=== PATIENT | female | born 1980 | race Caucasian/White ===

== ENCOUNTER → 2016-07-26 | Outpatient (CLI) | payer MEDICAID ==
[~2016-07-26] MED LIST: AYGESTIN5 MG PO; DELTASONE DPS10 MG PO; DUONEB DPS3 ML IH; ECHINACEA400 MG PO; FEOSOL-DPS325 MG PO; LAMOTRIGINE25 MG PO; LASIX DPS20 MG PO; MONTELUKAST SOD10 MG PO; MUCINEX600 MG PO; MUCUS AND COUG1 EACH PO; NIGHT TIME COL1 EACH PO; PANTOPRAZOLE SO20 MG PO; PROBIOTIC1 EAC1 PO; PROVENTIL HFA6.7 GM IH; PULMICORT FLE180 MCG IH; Q-TUSSIN100 MG/5 M PO; THERA1 EACH PO; TYLENOL DPS325 MG PO; VITAMIN C1000 MG PO; VITAMIN D31000 UNIT PO; ZINC CHELATED50 MG PO; ZITHROMAX250 MG PO; ZYRTEC DPS10 MG PO
== END | disposition home or self-care (01) ==
LOC: RAD.S 13:00
DX: N92.0 Excessive and frequent menstruation with regular cycle (principal)

== ENCOUNTER 2016-09-11 15:15 | Inpatient (IN) | payer MEDICAID ==
[~2016-09-11] VITALS: Ht 162.6 cm; Wt 177.2 kg
[2016-09-13] MEDS ORDERED: FEOSOL-DPS325 MG PO (15:53)
[2016-09-13] MEDS ORDERED: MONTELUKAST SOD10 MG PO (15:53)
[2016-09-13] MEDS ORDERED: ZYRTEC DPS10 MG PO (15:54)
[2016-09-13] MEDS ORDERED: PANTOPRAZOLE SO20 MG PO (15:54)
[2016-09-13] MEDS ORDERED: LAMOTRIGINE25 MG PO (15:54)
[2016-09-13] MEDS ORDERED: VITAMIN D31000 UNIT PO (15:55)
[2016-09-13] MEDS ORDERED: THERA1 EACH PO (15:55)
[2016-09-13] MEDS ORDERED: VITAMIN C1000 MG PO (15:55)
[2016-09-13] MEDS ORDERED: AYGESTIN5 MG PO (15:55)
[2016-09-13] MEDS ORDERED: LASIX DPS20 MG PO (15:55)
[2016-09-13] MEDS ORDERED: ECHINACEA400 MG PO (15:56)
[2016-09-13] MEDS ORDERED: MUCINEX600 MG PO (15:56)
[2016-09-13] MEDS ORDERED: PROBIOTIC1 EAC1 PO (15:56)
[2016-09-13] MEDS ORDERED: TYLENOL DPS325 MG PO (15:56)
[2016-09-13] MEDS ORDERED: NIGHT TIME COL1 EACH PO (15:57)
[2016-09-13] MEDS ORDERED: Q-TUSSIN100 MG/5 M PO (16:11)
[2016-09-13] MEDS ORDERED: MUCUS AND COUG1 EACH PO (16:12)
[2016-09-13] MEDS ORDERED: PULMICORT FLE180 MCG IH (16:13)
[2016-09-13] MEDS ORDERED: ZITHROMAX250 MG PO (16:13)
[2016-09-13] MEDS ORDERED: PROVENTIL HFA6.7 GM IH (16:13)
[2016-09-13] MEDS ORDERED: DUONEB DPS3 ML IH (16:13)
[2016-09-13] MEDS ORDERED: ZINC CHELATED50 MG PO (16:13)
[2016-09-13] MEDS ORDERED: DELTASONE DPS10 MG PO (16:14)
--- NOTE | 2016-09-20 09:59 | DS ---
ADMIT: 09/11/2016 RM/LOC: 429 [facility] MR#: [id number] [address] [id number] AARON SANDOVAL [address] [facility] [address] [place] [id number] Discharge Summary SEX: F AGE: 36 : 1980 ADMISSION DATE: 09/11/2016 DISCHARGE DATE: 09/13/2016 DISCHARGE DIAGNOSES: 1. Hypoxic respiratory failure, resolved. 2. Fever, resolved. 3. Acute bronchitis. 4. Acute exacerbation of asthma. 5. Tobacco abuse. 6. Morbid obesity. 7. Diabetes mellitus type 2. 8. Seasonal allergies. 9. Chronic sinusitis. CONSULTATIONS: None. PROCEDURES: None. REASON FOR ADMISSION: A very pleasant, 36-year-old female. Tobacco abuse, asthma. Presents to [facility] emergency room on the day of admission with complaints of shortness of breath, cough, stuffiness. The patient was found to be hypoxemic and coughing and wheezing, and she was admitted for further evaluation and treatment. For complete details, please see H and P dictated on the day of admission. HOSPITAL COURSE: At the time of admission, patient was placed in a telemetry bed. She underwent monitoring with telemetry. Her chest x-ray showed no initial consolidation. She was started on IV steroids and antibiotics. Blood cultures had been obtained. Blood cultures grew out nothing. She initially required up to 6 L of oxygen that was slowly titrated down to room air. She was able to ambulate without oxygen. We tapered her steroids and antibiotics. We put her on oral steroids and antibiotics. Her wheezing improved with regular pulmonary toilet and nebulized treatments. Discussed tobacco cessation at length with the patient especially given her asthma and chronic sinus and allergy problems. As mentioned, she ate and ambulated without difficulty on room air and was thought to be ready for discharge home on 09/13. ADMIT: 09/11/2016 RM/LOC: 429 [facility] MR#: [id number] 26[address] [facility] [address] [place] [id number] LORIGRACIE JONESERIE Trev [address] [facility] [address] [place] [id number] Discharge Summary SEX: F AGE: 36 : 1980 DISCHARGE MEDICATIONS: Found on her discharge medication list. 1. She will finish a short course of prednisone burst and taper by mouth as well as some oral Zithromax. 2. She will continue with nebulized albuterol at home. 3. We did add Pulmicort to her regimen for her asthma. ACTIVITY: As tolerated. DIET: ADA as tolerated. We will see her back in the next 7-10 days. Adrian Kendall MD/ stephanie JOB #: [id number] CC: Adrian Kendall MD, Attending Physician Adrian Kendall MD, Family Physician
--- NOTE | 2016-10-11 07:52 | HP ---
ADMIT: 09/11/2016 RM/LOC: 429 [facility] MR#: [id number] 2620 [facility] [address] [place], [place] [address] AARON SANDOVAL [address] [facility] [address] [place] [address] History and Physical SEX: F AGE: 36 : 1980 DATE OF SERVICE: HISTORY OF PRESENT ILLNESS: Mrs. Sandoval is a very pleasant 36-year-old, patient of Dr. Adrian Kendall, who presented to [facility] with complaint of increased cough and shortness of breath. She has had some sinus drainage over the last week, that then changed into more severe symptoms over the last 24-48 hours. She has had cough that is nonproductive, increased shortness of breath, as well as fevers as high as 101. She has been doing nebulizers every 2 hours, taking Tylenol, as well as multiple other [id number] cough and cold medicines including NyQuil, Mucinex, DayQuil, and sinus pills. Nothing seems to help, she feels worse today than she has at all. Unfortunately, Mrs. Sandoval continues to smoke at least half a pack per day, although she says for the last few days, she has only had a few. She does not have oxygen at home but does wear a CPAP at night. She has also noted increased nausea, no vomiting, she has no appetite, has also had some diarrhea. She has been trying to drink some fluids, but has not been eating much. She has been drinking hot tea with honey at least three 32-ounce glasses per day. PAST MEDICAL HISTORY: 1. Morbid obesity. 2. ADHD. 3. Obstructive sleep apnea, wearing CPAP. 4. OCD. 5. Dyspepsia. 6. Spinal stenosis of the lumbar. 7. History of suicide attempt. 8. Hypertension. 9. Migraines. 10.GERD. 11.Type 2 diabetes. 12.Asthma. 13.Nicotine addiction. PAST SURGICAL HISTORY: 1. section. 2. Cholecystectomy. 3. Knee scope. 4. Sinus surgery. 5. Tendon release of her thumb. 6. Tonsillectomy. 7. Tubal ligation. SOCIAL HISTORY: 1. She is and disabled. 2. Smoking history; current half a pack per day smoker. 3. Alcohol use rare. FAMILY HISTORY: ADMIT: 09/11/2016 RM/LOC: 429 [facility] MR#: [id number] [address] [address] AARON SANDOVAL [address] [facility] [address] [place] [address] History and Physical SEX: F AGE: 36 : 1980 1. Bipolar. 2. Hypothyroidism. 3. Anemia. 4. Seizures. 5. Diabetes. 6. Fibromyalgia. 7. Hypoglycemia. MEDICATIONS: 1. Ventolin inhaler two puffs every 4-6 hours as needed for shortness of breath or wheezing. 2. Vitamin C 500 mg daily. 3. Pulmicort 100 mcg two puffs b.i.d. 4. Zyrtec 10 mg daily. 5. Vitamin D3 5000 units one time per day. 6. Iron sulfate 325 mg b.i.d. 7. Lasix 20 mg daily. 8. Guaifenesin 400 mg every 6 hours. 9. Probiotic. 10.Lamictal 25 mg one time per day. 11.Singulair 10 mg per day. 12.Multivitamin. 13.Norethindrone 5 mg one time per day. 14.Protonix 20 mg b.i.d. 15.Ultram 50 mg every 6 hours as needed. 16.Zinc tablets. ALLERGIES: ASPIRIN, CODEINE, FLUORIDE, HYDROCODONE, AND OXYCODONE. REVIEW OF SYSTEMS: A 12-point review of systems was completed and otherwise negative as stated in the HPI. PHYSICAL EXAMINATION: GENERAL: Morbidly obese white female, in mild respiratory distress, her oxygen levels were in the 70s when she first presented to the clinic. INTEGUMENTARY: Skin is pale, slightly warm to touch and dry. HEENT: Mouth, mucous membranes are moist, throat is slightly pink, no swelling in her posterior oropharynx. Tympanic membranes are intact. No redness present. NECK: No lymphadenopathy present. HEART: Regular rate and rhythm. No murmur, gallops, or rubs, although is slightly tachycardic. LUNGS: Slightly dyspneic and tachypneic. Sats mid 70s up to 90% on 3 L. Lung sounds are wheezy and diminished throughout. EXTREMITIES: Peripheral vascular, 2+ peripheral edema noted. NEUROLOGIC: Alert and appropriate. No focal neurologic symptoms present. MUSCULOSKELETAL: Using a wheelchair to get around the clinic today due to weakness and shortness of breath. ADMIT: 09/11/2016 RM/LOC: 429 [facility] MR#: [id number] [address] [place] [id number] AARON SANDOVAL [facility] [address] [address] History and Physical SEX: F AGE: 36 : 1980 LABORATORY DATA: Deferred. ASSESSMENT AND PLAN: We will admit to [facility] for hypoxia given her sats were in the 70s on room air. When she first presented to the clinic, it took a while to get her sats up to 90% on 3 L. Lung sounds are tight, hopefully this is no more than an asthma exacerbation and she will respond well to steroids, IV fluids, and possibly antibiotics. We will go ahead and admit her under the care of Dr. Adrian Kendall, her primary care physician. We will start her on oxygen and nebulizers as soon as she gets to the floor. The plan was discussed with the patient and the spouse and they both agree with admission. As mentioned, all further orders per Dr. Adrian Kendall. Katia Snow APRN / Adrian Kendall MD / alicia JOB #: [id number] CC: Adrian Kendall, Attending Physician Adrian Kendall, Family Physician
== END 2016-09-13 15:43 | disposition home or self-care (01) | DRG 202 ==
LOC: 4PCU 15:15
PROVIDERS: ADMIT Internal Medicine
DX: J45.901 Unspecified asthma with (acute) exacerbation (principal); J96.91 Respiratory failure, unspecified with hypoxia; Z68.44 Body mass index [BMI] 60.0-69.9, adult; E11.9 Type 2 diabetes mellitus without complications; I10 Essential (primary) hypertension; F17.210 Nicotine dependence, cigarettes, uncomplicated; J32.9 Chronic sinusitis, unspecified; E66.01 Morbid (severe) obesity due to excess calories; K21.9 Gastro-esophageal reflux disease without esophagitis; F90.9 Attention-deficit hyperactivity disorder, unspecified type; G47.33 Obstructive sleep apnea (adult) (pediatric); F42.9 Obsessive-compulsive disorder, unspecified; G43.909 Migraine, unspecified, not intractable, without status migrainosus; R09.02 Hypoxemia; J20.9 Acute bronchitis, unspecified